=== PATIENT | male | born 1945 | race Caucasian/White ===

== ENCOUNTER 2017-08-26 06:23 | Day surgery (SDC) | payer MEDICARE, OTHER ==
[~2017-08-26] VITALS: Ht 170.2 cm; Wt 72.6 kg
--- NOTE | 2017-08-26 09:38 | NUR ---
CONNECTED WITH PT'S MIKHAIL. CONCERNED ABOUT KEEPING PT STILL TODAY. PT THINKS HE SHOULD BE DOING MOST OF HIS NORMAL ROUTINE-EXCEPT DRIVING. MIKHAIL WAS WAITING TO VISIT WITH DR. ROSS A BLESSING WILL FOLLOW NEEDED
--- NOTE | 2017-08-27 18:28 | OR ---
[facility] [address], [place] [address] Signed DATE OF OPERATION: 08/26/2017 SURGEON: Murtaza Sanchez MD PREOPERATIVE DIAGNOSES: 1. Surveillance colonoscopy. 2. History of diverticulosis. 3. Family history of polyps (sister). POSTOPERATIVE DIAGNOSIS: Sigmoid diverticulosis, otherwise normal. PROCEDURE: Total colonoscopy to cecum. ANESTHESIA: Intravenous sedation, fentanyl 150 mcg, Versed 4 mg. 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 He has family history of polyps in his sister. He is symptom free currently. He was admitted to undergo colonoscopy. He understands the risks of bleeding, infection, and perforation. FINDINGS: The prep was excellent. Complete colonoscopy was undertaken to the cecum without problem. There were numerous diverticula of the sigmoid colon, but no sign of polyps, colitis, or other problem. DESCRIPTION OF PROCEDURE: The patient was brought to the endoscopy suite and placed in lateral decubitus position and given intravenous sedation to the point of slurred speech and nystagmus. Digital rectal examination was normal. An Olympus video colonoscope was passed in the rectum and manipulated throughout the colon ultimately intubating the cecum itself. The ileocecal valve was normal as was appendiceal orifice. The scope was withdrawn from that point and examination throughout showed no sign of abnormality until the sigmoid where small diverticula were noted once again. Retroflexed view of the rectum was normal. The scope was removed and the patient was taken to the recovery room in good condition. Electronically Signed By: MURTAZA SANCHEZ MD 08/27/17 1828 PATIENT NAME: MURTAZA SLADE OPERATIVE REPORT DATE OF : 47 REPORT #: [id number] PHYSICIAN: MURTAZA SANCHEZ MD PCP: RUFUS SMALL MD REPORT IS CONFIDENTIAL AND NOT TO BE RELEASED WITHOUT AUTHORIZATION [facility] [address] [place], [place] [address] Signed CONCLUDING DIAGNOSIS: Diverticular changes of sigmoid otherwise normal. PLAN: Recommend repeat colonoscopy in 10 years as appropriate, sooner if clinically indicated. He will return to the ongoing care of Dr. Small. MD FREDY Burgos/AIMEEL /[id number] cc: Rufus Small MD Copies: RUFUS SMALL MD ~ Electronically Signed By: MURTAZA SANCHEZ MD 08/27/17 1828 PATIENT NAME: MURTAZA SLADE OPERATIVE REPORT DATE OF : 47 REPORT #: [id number] PHYSICIAN: MURTAZA SANCHEZ MD PCP: RUFUS SMALL MD REPORT IS CONFIDENTIAL AND NOT TO BE RELEASED WITHOUT AUTHORIZATION
== END 2017-08-26 08:39 | disposition home or self-care (01) ==
LOC: DS 06:23 → OPS 06:23 → DS 06:45 → OPS 06:45
PROVIDERS: Surgery
PROC: 0DJD8ZZ Inspection of Lower Intestinal Tract, Via Natural or Artificial Opening Endoscopic (ICD-10-PCS; principal; 2017-08-26 06:45)
DX: Z12.11 Encounter for screening for malignant neoplasm of colon (principal); K57.30 Diverticulosis of large intestine without perforation or abscess without bleeding; Z83.71 Family history of colonic polyps; Z98.890 Other specified postprocedural states
CPT/HCPCS: 99153; G0500; J2250; J3010; J7120